=== PATIENT | female | born 1935 | race Two or more races ===

== ENCOUNTER 2019-12-25 09:46 | Day surgery (SDC) | payer MEDICARE, MEDICAID ==
[~2019-12-25] VITALS: Ht 127 cm; Wt 75.0 kg
[2019-12-25] MEDS ORDERED: SODIUM CHLORIDE 0.9% 1,000 ML IV ONE (10:00)
[2019-12-25 10:41] VITALS: BP 149/85
[2019-12-25 10:55] LABS: ANION GAP 6 mmol/L (5-15); CALCIUM 9.1 mg/dL (8.5-10.1); CHLORIDE 108 mmol/L (98-107)
[2019-12-25 10:58] LABS: BASOPHILS # (AUTO) 0.02 x10^3/uL (0-0.1); BASOPHILS % (AUTO) 0 % (0-1); EOSINOPHILS # (AUTO) 0.05 x10^3/uL (0-0.4); EOSINOPHILS % (AUTO) 1 % (1-7); LYMPHOCYTES # (AUTO) 2.56 x10^3/uL (1-3.4); LYMPHOCYTES % (AUTO) 40 % (22-44); MD NO; MEAN CORPUSCULAR HEMOGLOBIN 31.2 pg (27.0-34.8); MEAN CORPUSCULAR VOLUME 94.4 fL (80-100); MONOCYTES # (AUTO) 0.42 x10^3/uL (0.2-0.8); MONOCYTES % (AUTO) 6 % (2-9); NEUTROPHILS # (AUTO) 3.43 x10^3/uL (1.8-6.8); NEUTROPHILS % (AUTO) 53 % (42-75); PLATELET COUNT 207 x10^3/uL (130-400); RED BLOOD COUNT 4.55 x10^6/uL (3.82-5.3); RED CELL DISTRIBUTION WIDTH 13.4 % (9.6-15.2)
[2019-12-25] MEDS ORDERED: FENTANYL PF 100 MCG/2ML ONE (14:05)
[2019-12-25] MEDS ORDERED: VERAPAMIL 2.5 MG/ML, 2ML ONE (14:05)
[2019-12-25] MEDS ORDERED: MIDAZOLAM 1 MG/ML, 5ML ONE (14:05)
[2019-12-25] MEDS ORDERED: HEPARIN 1,000 UNITS/ML, 10ML ONE (14:05)
[2019-12-25] MEDS ORDERED: LIDOCAINE-MPF 1%, 5ML ONE (14:05)
[2019-12-25] MEDS ORDERED: SODIUM CHLORIDE 0.9% 1,000 ML IV SCH (14:50)
[2020-01-14] MEDS ORDERED: FURO20TA3 PO (09:06)
[2020-01-14] MEDS ORDERED: MELO7.5T31 PO (09:06)
[2020-01-14] MEDS ORDERED: GABA300C10 PO (09:06)
[2020-01-14] MEDS ORDERED: OMEP-110 PO (09:06)
[2020-01-15] MEDS ORDERED: ASPI81TA45 PO (09:15)
[2020-01-15] MEDS ORDERED: ACET325T26 PO (09:15)
[2020-01-15] MEDS ORDERED: CLOP75TA PO (09:15)
== END 2019-12-25 16:40 | disposition home or self-care (01) ==
LOC: CACL 09:46
PROVIDERS: ATTEND Internal Medicine Cardiovascular Disease
DX: R07.9 Chest pain, unspecified (principal); I25.10 Atherosclerotic heart disease of native coronary artery without angina pectoris; I35.0 Nonrheumatic aortic (valve) stenosis; I50.33 Acute on chronic diastolic (congestive) heart failure; Z79.1 Long term (current) use of non-steroidal anti-inflammatories (NSAID); Z79.899 Other long term (current) drug therapy
CPT/HCPCS: 36415; 80048; 85025; 93454; 99156; C1769; C1894; J1644; J2250; J3010; Q9967

== ENCOUNTER 2020-01-08 09:46 | Outpatient (CLI) | payer MEDICARE, MEDICAID ==
[2020-01-08] MEDS ORDERED: METOPROLOL 1 MG/ML, 5ML ONE (11:25)
[2020-01-08] MEDS ORDERED: OMNIPAQUE 350 MG/ML, 100ML BOTTLE ONE (11:49)
[2020-01-14] MEDS ORDERED: FURO20TA3 PO (09:06)
[2020-01-14] MEDS ORDERED: GABA300C10 PO (09:06)
[2020-01-14] MEDS ORDERED: MELO7.5T31 PO (09:06)
[2020-01-14] MEDS ORDERED: OMEP-110 PO (09:06)
[2020-01-14] MEDS ORDERED: CLOPIDOGREL 300 MG TABLET ONE (13:44)
[2020-01-15] MEDS ORDERED: ASPI81TA45 PO (09:15)
[2020-01-15] MEDS ORDERED: CLOP75TA PO (09:15)
[2020-01-15] MEDS ORDERED: ACET325T26 PO (09:15)
== END 2020-01-08 23:59 | disposition home or self-care (01) ==
LOC: RAD 09:46
PROVIDERS: ATTEND Internal Medicine Cardiovascular Disease
DX: I71.2 Thoracic aortic aneurysm, without rupture (principal); I35.0 Nonrheumatic aortic (valve) stenosis; R06.02 Shortness of breath; I65.29 Occlusion and stenosis of unspecified carotid artery; K42.9 Umbilical hernia without obstruction or gangrene; N28.1 Cyst of kidney, acquired; K76.0 Fatty (change of) liver, not elsewhere classified; M47.816 Spondylosis without myelopathy or radiculopathy, lumbar region; I70.0 Atherosclerosis of aorta; I51.7 Cardiomegaly; E04.2 Nontoxic multinodular goiter; I10 Essential (primary) hypertension
CPT/HCPCS: 71275; 74174; 93880; 94010; Q9967

== ENCOUNTER → 2020-02-11 | Outpatient (CLI) | payer MEDICARE, MEDICAID ==
[~2020-02-11] MED LIST: ACET325T26 PO; ASPI81TA45 PO; CLOP75TA PO; FURO20TA3 PO; GABA300C10 PO; MELO7.5T31 PO; OMEP-110 PO
== END | disposition home or self-care (01) ==
LOC: CVU 09:50
PROVIDERS: ATTEND Internal Medicine Cardiovascular Disease
DX: I08.1 Rheumatic disorders of both mitral and tricuspid valves (principal); I10 Essential (primary) hypertension; I65.29 Occlusion and stenosis of unspecified carotid artery
CPT/HCPCS: 93306